=== PATIENT | female | born 1955 | race Caucasian/White ===

== ENCOUNTER 2018-03-10 12:02 | Outpatient (CLI) | payer OTHER | END 2018-03-10 12:03 | disposition home or self-care (01) | LOC: BICMAMMO 12:02 | PROVIDERS: ATTEND Internal Medicine | DX: Z12.31 Encounter for screening mammogram for malignant neoplasm of breast (principal); M81.0 Age-related osteoporosis without current pathological fracture; Z78.0 Asymptomatic menopausal state; Z80.3 Family history of malignant neoplasm of breast | CPT/HCPCS: 77063; 77067; 77080 ==

== ENCOUNTER 2020-02-13 15:16 | Outpatient (CLI) | payer OTHER ==
--- NOTE | 2020-02-13 15:08 | MMO ---
Bilateral MAMMO Bilat Diag [facility]DI+JONO. CLINICAL HISTORY: Patient is 64 years old and is seen for diagnostic exam. The patient has no personal history of cancer. VIEWS: The views performed were: bilateral craniocaudal with tomosynthesis; bilateral mediolateral oblique with tomosynthesis; and bilateral mediolateral with tomosynthesis. FILMS COMPARED: The present examination has been compared to prior imaging studies performed at [facility] on 12/20/2015, 07/02/2016, 03/10/2018 and 02/13/2020. This study has been interpreted with the assistance of computer-aided detection. MAMMOGRAM FINDINGS: There are scattered fibroglandular densities. Benign calcifications are noted bilaterally. US of left breast 4:00 shows a solid nodule which should be biopsied. This does not have a maamographic correlate. In the right breast, there are no suspicious masses, calcifications or areas of architectural distortion. IMPRESSION: FINDING IN THE LEFT BREAST IS SUSPICIOUS. AN ULTRASOUND-GUIDED BREAST BIOPSY IS RECOMMENDED. THE RESULTS OF THIS EXAM WERE SENT TO THE PATIENT. ACR BI-RADS Category 4 - Suspicious abnormality - biopsy should be considered MAMMOGRAPHY NOTE: 1. A negative mammogram report should not delay a biopsy if a dominant of clinically suspicious mass is present. 2. Approximately 10% to 15% of breast cancers are not detected by mammography. 3. Adenosis and dense breasts may obscure an underlying neoplasm. Reported by: JOEY LEAL MD Electonically Signed: [id number]
--- NOTE | 2020-02-13 16:09 | ULT ---
LEFT BREAST ULTRASOUND: 02/13/20 HISTORY: Left breast pain. FINDINGS: Correlation is made with the mammogram of same date. Sonographic evaluation in the region of pain at the 4, 5, and 6 o'clock positions of the left breast is performed. There is an 8 x 5 x 5 mm well circumscribed nonshadowing solid nodule at the 4 o'clock position 2 cm from the nipple which does not have a mammographic correlate. IMPRESSION: BI-RADS 4: Suspicious Abnormality - Biopsy Should Be Considered Ultrasound guided biopsy is recommended. Discussed in person with the patient at 3:05 p.m. and over the phone with Dr Irasema Rausch at 3:14 pm.
== END 2020-02-13 15:17 | disposition home or self-care (01) ==
LOC: BICMAMMO 15:16
PROVIDERS: ATTEND Internal Medicine
DX: N64.4 Mastodynia (principal)
CPT/HCPCS: 77066; G0279

== ENCOUNTER → 2020-02-19 | Day surgery (SDC) | payer OTHER ==
--- NOTE | 2020-02-19 14:02 | MMO ---
Left Breast MAMMO Unilat Diag DDI LT. CLINICAL HISTORY: Patient is 64 years old and is seen for diagnostic exam. VIEWS: The views performed were: . FILMS COMPARED: The present examination has been compared to prior imaging studies performed at [facility] on 07/02/2016, 03/10/2018 and 02/13/2020. This study has been interpreted with the assistance of computer-aided detection. MAMMOGRAM FINDINGS: There are scattered fibroglandular densities. There is a biopsy clip seen in the left breast. Clip in good position associated with small nodule. IMPRESSION: BIOPSY CLIP IN THE LEFT BREAST IS CONFIRMED UTILIZING POST PROCEDURE MAMMOGRAM. THE RESULTS OF THIS EXAM WERE SENT TO THE PATIENT. MAMMOGRAPHY NOTE: 1. A negative mammogram report should not delay a biopsy if a dominant of clinically suspicious mass is present. 2. Approximately 10% to 15% of breast cancers are not detected by mammography. 3. Adenosis and dense breasts may obscure an underlying neoplasm. Reported by: ROSY MEDINA MD Electonically Signed: [id number]
--- NOTE | 2020-02-19 16:21 | ULT ---
ULTRASOUND GUIDED LEFT BREAST BIOPSY: HISTORY: Left breast mass noted on a recent mammogram and ultrasound study. FINDINGS: After informed consent was obtained, the patient was prepped and draped in normal sterile fashion. T he lesion in question is at the 4 o'clock position of the left breast approximately 2 cm from the nip ple. This measures 7 mm in maximum size. Local anesthesia was obtained with 1% Xylocaine mixed with sodium bicarb. A small skin incision was made with a #11 scalpel blade. Initially due to its hypoe choic and somewhat circumscribed nature, I attempted to aspirate with an 18-gauge needle under the po ssibility this could represent a complex cyst, but was not successful at aspiration. Subsequently, a total of 3 core biopsies were performed using a 14-gauge needle. The patient tolerated the procedur e. There were no immediate complications. A biopsy clip was deployed. A post biopsy mammogram show ed the clip to have deployed in the region of a small nodule within the left breast. IMPRESSION: Ultrasound-directed biopsy of hypoechoic left breast mass. No immediate complications of the procedu re. POS: ROWENA
== END ==
LOC: BICULT 12:50
PROVIDERS: ATTEND Internal Medicine
PROC: 0H9U3ZX Drainage of Left Breast, Percutaneous Approach, Diagnostic (ICD-10-PCS; principal; 2020-02-19)
DX: D24.2 Benign neoplasm of left breast (principal)
CPT/HCPCS: 19083; 88305; 88341; 88342

== ENCOUNTER 2020-09-05 18:55 | Emergency (ER) | payer OTHER ==
--- NOTE | 2020-09-05 19:58 | RAD ---
CHEST ONE VIEW: 09/05/20 INDICATION: History of COVID diagnosis and increasing shortness of breath, desaturation, fever and weakness. COMPARISON: None. FINDINGS: There is air space disease of the right mid lung and left upper lobe suspicious for pneumonia. There is mild cardiomegaly. No pleural effusion or pneumothorax evident. No acute osseous abnormality is ev ident. IMPRESSION: Bilateral air space disease suspicious for pneumonia. POS: BH
[2020-09-05] MEDS ORDERED: Ibuprofen 800 MG TAB ONE (20:11)
[2020-09-05] MEDS ORDERED: Azithromycin 500 MG VIAL ONE (20:11)
[2020-09-05 20:40] LABS: #Lymphocytes 1.4 thou/uL (1.20-3.40); #Neutrophils 10.1 thou/uL (1.40-6.50); %Basophils 0.1 % (0.0-1.0); %Eosinophils 0.2 % (0.0-10.0); %Lymphocytes 10.8 % (21.0-51.0); %Monocytes 7.6 % (0.0-10.0); %Neutrophils 81.3 % (42.0-75.0); Hemoglobin 14.2 g/dL (12.0-16.0); Mean Corpuscular HGB CONC 33.7 g/dL (32.0-36.0); Mean Corpuscular Hemoglobin 29.9 pg (27.0-31.0); Mean Corpuscular Volume 88.5 fL (78.0-98.0); Platelet Count 219 thou/uL (130-400); RBC Distribution Width 12.1 % (11.5-14.5); Red Blood Cell (RBC) Count 4.75 mill/uL (4.20-5.40); White Blood Cell (WBC) Count 12.4 thou/uL (4.8-10.8)
[2020-09-05 21:02] LABS: ALT (SGPT) 25 U/L (8-55); AST (SGOT) 23 U/L (5-34); Albumin 3.9 g/dL (3.4-4.8); Alkaline Phosphatase 100 U/L (40-110); Anion Gap 14 mmol/L (10-20); BUN (Urea Nitrogen) 10 mg/dL (9.8-20.1); Bilirubin, Total 0.6 mg/dL (0.2-1.2); Calc. Creatinine Clearance 0 mL/min (70-130); Calcium 8.7 mg/dL (7.8-10.44); Carbon Dioxide 26 mmol/L (23-31); Chloride 100 mmol/L (98-107); Globulin 3.4 g/dL (2.4-3.5); Glucose 114 mg/dL (80-115); Protein, Total 7.3 g/dL (6.0-8.3); Sodium 136 mmol/L (136-145)
--- NOTE | 2020-09-05 22:34 | CT ---
CT ANGIOGRAM THORAX WITH CONTRAST: (CTA pulmonary angiogram) DATE: 09/05/2020 HISTORY: 65-year-old COVID-19 positive female with dyspnea, hypoxemia, and fever TECHNIQUE: IV injection of iodinated contrast. Scan acquisition timing attempted to coincide with iodinated contrast bolus reaching maximal density in pulmonary arteries. 3-D MIP reconstructions. FINDINGS: Large number of small, multifocal peripheral and central patchy infiltrates in right lower lobe, and to a lesser degree mostly peripheral infiltrates in bilateral upper lobes. Mild infiltrate left lower lobe. Small left and tiny right pleural effusion. Fatty liver. No thoracic aortic aneurysm or dissection. Small pericardial effusion. No thrombus in any pulmonary artery structures, proximal or distal. Mildly enlarged bilateral hilar lymph nodes. Trachea and major bronchi are patent and clear. IMPRESSION: 1) multifocal infiltrates: Evidence for COVID-19 pneumonia. 2) no pulmonary thromboembolism. 3) very small bilateral pleural effusions and small pericardial effusion. 4) hepatic steatosis
== END 2020-09-05 23:42 | disposition home or self-care (01) ==
LOC: ERS 18:55
DX: U07.1 COVID-19 (principal); J12.89 Other viral pneumonia; R11.2 Nausea with vomiting, unspecified; R79.89 Other specified abnormal findings of blood chemistry; R73.03 Prediabetes; Z79.82 Long term (current) use of aspirin; Z79.899 Other long term (current) drug therapy
CPT/HCPCS: 36415; 71045; 71275; 80053; 83605; 84484; 85025; 85379; 87040; 93005; 96365; J0456

== ENCOUNTER 2020-10-15 09:21 | Outpatient (CLI) | payer BC ==
--- NOTE | 2020-10-15 09:54 | RAD ---
PA AND LATERAL CHEST: Date: 10/15/2020 HISTORY: Cough. COMPARISON: 09/05/2020 exam. FINDINGS: Heart size and mediastinum are within normal limits. There are some atherosclerotic changes of the ao rta. Lungs show some mild chronic-appearing change. No definite infiltrative process. Parenchymal lillie nges appear less prominent than on the 09/05/2020 exam. IMPRESSION: Improving parenchymal lung changes with still some minimally increased markings in the lung bases. POS: DAILY
== END 2020-10-15 09:22 | disposition home or self-care (01) ==
LOC: BICRAD 09:21
PROVIDERS: ATTEND Internal Medicine
DX: R05 Cough (principal)
CPT/HCPCS: 71046

== ENCOUNTER 2022-03-24 15:06 | Outpatient (CLI) | payer MEDICARE | END 2022-03-24 15:07 | disposition home or self-care (01) | LOC: BICMAMMO 15:06 | PROVIDERS: ATTEND Family Medicine | DX: Z12.31 Encounter for screening mammogram for malignant neoplasm of breast (principal); N63.10 Unspecified lump in the right breast, unspecified quadrant; Z86.018 Personal history of other benign neoplasm | CPT/HCPCS: 77063; 77067 ==

== ENCOUNTER 2022-04-13 09:50 | Outpatient (CLI) | payer MEDICARE | END 2022-04-13 09:51 | disposition home or self-care (01) | LOC: BICULT 09:50 | PROVIDERS: ATTEND Family Medicine | DX: N63.10 Unspecified lump in the right breast, unspecified quadrant (principal); N60.01 Solitary cyst of right breast ==